=== PATIENT | female | born 1985 | race Two or more races ===

== ENCOUNTER 2018-03-22 19:28 | Emergency (ER) | payer OTHER ==
[~2018-03-22] VITALS: Ht 167.6 cm; Wt 83.5 kg
[2018-03-22 21:15] VITALS: BP 104/61
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
[2018-03-22] MEDS ORDERED: VOLTAREN100 G1 TP (21:18)
[2018-03-22] MEDS ORDERED: NAPROXEN500 M2 ORAL (21:18)
--- NOTE | 2018-03-22 21:35 | Diagnostic Imaging Report ---
History: TRAUMA Exam: XR C SPINE 3 views Comparison: None available FINDINGS: No evidence of fracture or malalignment. Straightening may represent position or spasm. No evidence of prevertebral swelling. The disc spaces appear preserved. IMPRESSION: No evidence of fracture or malalignment. Straightening may represent position or spasm. No evidence of prevertebral swelling.
--- NOTE | 2018-03-22 21:39 | Diagnostic Imaging Report ---
History: TRAUMA Exam: XR L SPINE 3 views Comparison: None available FINDINGS: No evidence of fracture or malalignment. Straightening may represent position or spasm. The disc spaces appear preserved. IMPRESSION: No evidence of fracture or malalignment. Straightening may represent position or spasm.
[2018-03-22 21:40] VITALS: BP 104/61
== END 2018-03-22 21:40 | disposition home or self-care (01) ==
LOC: EMR 20:16
DX: S16.1XXA Strain of muscle, fascia and tendon at neck level, initial encounter (principal); S33.5XXA Sprain of ligaments of lumbar spine, initial encounter; V43.52XA Car driver injured in collision with other type car in traffic accident, initial encounter; Y92.488 Other paved roadways as the place of occurrence of the external cause; E03.9 Hypothyroidism, unspecified; M79.652 Pain in left thigh; M79.651 Pain in right thigh; M79.622 Pain in left upper arm; M25.512 Pain in left shoulder
CPT/HCPCS: 72020; 72040; 99284